=== PATIENT | male | born 1995 | race African-American/Black ===

== ENCOUNTER 2020-08-31 14:56 | Emergency (ER) | payer OTHER, SELFPAY ==
[2020-08-31 15:14] VITALS: BP 130/78; PULSE 68; RESP 16; TEMP 36.1; O2SAT 98; BMI 34.8
--- NOTE | 2020-08-31 15:18 | ED.HEATRA ---
HPI - Head Injury General Chief complaint: Head Injury <FLIP Christopher Last Filed: 08/31/20 16:53> Stated complaint: HIT BY POLE HEAD PAIN,NECK PAIN INJ <FLIP Christopher Last Filed: 08/31/20 16:53> Time Seen by Provider: 08/31/20 15:18 <FLIP Christopher Last Filed: 08/31/20 16:53> Source: patient <FLIP Christopher Last Filed: 08/31/20 16:53> Mode of arrival: ambulatory <FLIP Christopher Last Filed: 08/31/20 16:53> Limitations: no limitations <FLIP Christopher Last Filed: 08/31/20 16:53> History of Present Illness HPI Narrative: 25-year-old male here with neck pain and head pain and leg pain and chest pain. The patient tells me on August 29 he was doing a pole trick and the stripper pole collapsed on him causing the patient to fall. The pole hit him in the head and then he hit his head on a [place] counter. there was no loss of consciousness. The patient tells me the full broke into many pieces hitting him in the chest and legs. The patient has had a headache since the injury, neck pain, rib pain, leg pain. He was seen in urgent care and had a rib and chest x-ray which was negative. He also had a cervical x-ray which was negative and was sent to the emergency department for further evaluation. The patient has a generalized headache, posterior neck pain. No photophobia, nausea, vomiting, dizziness. Also complaining of bilateral rib pain bilateral thigh pain. No previous history of concussions <FLIP Christopher Last Filed: 08/31/20 16:53> MD Complaint: head injury and head pain <FLIP Christopher Last Filed: 08/31/20 16:53> Onset (ago): day(s) <FLIP Christopher Last Filed: 08/31/20 16:53> Mechanism of Injury: fall <FLIP Christopher Last Filed: 08/31/20 16:53> Place: other <Tosha Almaguer NP - Last Filed: 08/31/20 16:53> Loss of Consciousness: no <Tosha Almaguer NP - Last Filed: 08/31/20 16:53> Location of injury: frontal <Tosha Almaguer NP - Last Filed: 08/31/20 16:53> Severity: mild <Tosha Almaguer NP - Last Filed: 08/31/20 16:53> Quality: sharp <Tosha Almaguer NP - Last Filed: 08/31/20 16:53> Radiation: neck <Tosha Almaguer NP - Last Filed: 08/31/20 16:53> Other Injuries: chest and lower extremity <Tosha Almaguer NP - Last Filed: 08/31/20 16:53> Context: other (none ) <Tosha Almaguer NP - Last Filed: 08/31/20 16:53> Associated symptoms: denies other symptoms <Tosha Almaguer NP - Last Filed: 08/31/20 16:53> Related Data Home medications: Previous Rx's Medication Instructions Recorded cyclobenzaprine 10 mg PO TID PRN #10 tab 08/31/20 ibuprofen 600 mg PO Q8H PRN #15 tab 08/31/20 <Tosha Almaguer NP - Last Filed: 08/31/20 16:53> Allergies/Adverse reactions: Allergies Allergy/AdvReac Type Severity Reaction Status Date / Time shellfish derived Allergy Unknown ITCHING Verified 08/31/20 15:17 [SHELLFISH DERIVED] Penicillins [PCN] Allergy Anaphylaxis Verified 08/31/20 15:17 <Tosha Almaguer NP - Last Filed: 08/31/20 16:53> Review of Systems Review of Systems: Yes all other systems are reviewed and are negative <Tosha Almaguer NP - Last Filed: 08/31/20 16:53> Constitutional: Constitutional: Reports no additional constitutional complaints, Denies body ache(s), Denies chills, Denies fever(s), Reports headache(s) and Denies weakness <Tosha Almaguer NP - Last Filed: 08/31/20 16:53> Eyes: Eyes: Reports no additional eye complaints and Denies change in vision <Tosha Almaguer NP - Last Filed: 08/31/20 16:53> ENT: Reports system reviewed and no additional complaints, except as documented, Denies dizziness, Reports headache(s), Denies nasal congestion, Denies nasal discharge and Reports neck pain <Tosha Almaguer NP - Last Filed: 08/31/20 16:53> Cardiovascular: Cardiovascular: Reports no additional cardiovascular complaints, Reports chest pain, Denies leg edema and Denies dyspnea <Tosha Almaguer NP - Last Filed: 08/31/20 16:53> Respiratory: Respiratory: Reports no additional respiratory complaints, Denies cough and Denies dyspnea <Tosha Almaguer NP - Last Filed: 08/31/20 16:53> Gastrointestinal: Gastrointestinal: Reports no additional gastrointestinal complaints, Denies abdominal pain, Denies diarrhea, Denies nausea and Denies vomiting <Tosha Almaguer NP - Last Filed: 08/31/20 16:53> Genitourinary: Genitourinary: Denies urinary incontinence <Tosha Almaguer NP - Last Filed: 08/31/20 16:53> Musculoskeletal: Musculoskeletal: Reports no additional musculoskeletal complaints, Denies back pain, Denies arthralgias, Denies joint swelling, Reports neck pain, Denies numbness and Denies tingling <Tosha Almaguer NP - Last Filed: 08/31/20 16:53> Comments: muscle aches <Tosha Almaguer NP - Last Filed: 08/31/20 16:53> Integumentary/Breasts: Skin/Breast: Reports system reviewed and no additional complaints, except as docu and Denies rash <Tosha Almaguer NP - Last Filed: 08/31/20 16:53> Neurologic: Reports system reviewed and no additional complaints, except as documented, Denies Abnormal speech present, Denies dizziness, Reports headache(s), Denies numbness, Denies tingling and Denies weakness <Tosha Almaguer NP - Last Filed: 08/31/20 16:53> [facility] Past Medical History Attestation statement: The following information was validated with the patient. <Tosha Almaguer NP - Last Filed: 08/31/20 16:53> Source: old records reviewed, obtained from family and nursing notes reviewed <Tosha Almaguer NP - Last Filed: 08/31/20 16:53> Medical History: Medical History No known health problems <Tosha Almaguer NP - Last Filed: 08/31/20 16:53> Social History Social History: Social History Smoking Status: Never smoker Substance Use Type: Marijuana Advance Directives: No Advance Directives Information Provided: Yes <Tosha Almaguer NP - Last Filed: 08/31/20 16:53> Physical Exam Vital Signs: Vital Signs: Vital Signs Temp Pulse Resp BP Pulse Ox 08/31/20 15:14 96.9 F 68 16 130/78 98 Body Mass Index 34.8 <Tosha Almaguer NP - Last Filed: 08/31/20 16:53> Vital Signs: Vital Signs Temp Pulse Resp BP Pulse Ox 08/31/20 15:14 96.9 F 68 16 130/78 98 Body Mass Index 34.8 <Brien Fonseca MD - Last Filed: 09/11/20 01:39> Const: General: cooperative, healthy appearing, comfortable and no acute distress <Tosha Almaguer NP - Last Filed: 08/31/20 16:53> Orientation/consciousness: patient oriented x3 <Tosha Almaguer NP - Last Filed: 08/31/20 16:53> Limitations: no limitations <Tosha Almaguer NP - Last Filed: 08/31/20 16:53> HENMT: Head: Yes normal to inspection <Tosha Almaguer NP - Last Filed: 08/31/20 16:53> Ears: hearing grossly normal bilaterally <Tosha Almaguer NP - Last Filed: 08/31/20 16:53> General nose exam: Normal external nose present <FLIP Christopher Last Filed: 08/31/20 16:53> Face and sinus: Yes normal facial exam <Tosha Almaguer NP - Last Filed: 08/31/20 16:53> Mouth: Normal oral and palatal mucosa present <Tosha Almaguer NP - Last Filed: 08/31/20 16:53> Throat: Yes posterior oropharynx normal <Tosha Almaguer NP - Last Filed: 08/31/20 16:53> Eyes: General: appearance normal, both eyes and all related structures <Tosha Almaguer NP - Last Filed: 08/31/20 16:53> Pupils: Equal, round and reactive pupils present <Tosha Almaguer NP - Last Filed: 08/31/20 16:53> Neck: Other: midline lower cervical tenderness with no step-offs or deformities. <Tosha Almaguer NP - Last Filed: 08/31/20 16:53> Neck: Yes normal visual inspection, Yes full ROM, Yes no lymphadenopathy, Yes no meningeal signs, Yes trachea midline, Yes supple and No anterior neck swelling <Tosha Almaguer NP - Last Filed: 08/31/20 16:53> Chest: Other: Bilateral rib pain with mild tenderness. No crepitus, ecchymosis, deformity noted. <Tosha Almaguer NP - Last Filed: 08/31/20 16:53> Chest palpation & inspection: normal inspection of the chest <Tosha Almaguer NP - Last Filed: 08/31/20 16:53> Resp: Effort & Inspection: normal respiratory effort <Tosha Almaguer NP - Last Filed: 08/31/20 16:53> Auscultation: clear to auscultation bilaterally <Tosha Almaguer NP - Last Filed: 08/31/20 16:53> Cardio: Rate: regular rate <Tosha Almaguer NP - Last Filed: 08/31/20 16:53> Rhythm: regular rhythm <Tosha Almaguer NP - Last Filed: 08/31/20 16:53> Peripheral pulses: Peripheral pulses 2+ throughout <Tosha Almaguer NP - Last Filed: 08/31/20 16:53> GI: Inspection: Yes normal to inspection <Tosha Almaguer NP - Last Filed: 08/31/20 16:53> Palpation (GI): Soft to palpation and nontender <Tosha Almaguer NP - Last Filed: 08/31/20 16:53> Auscultation: normal bowel sounds <Tosha Almaguer EQUIPMENT OILER - Last Filed: 08/31/20 16:53> Back/Spine/Pelvis: Thoracic/Lumbar Spine: thoracic and lumbar spine normal to inspection <Tosha Almaguer NP - Last Filed: 08/31/20 16:53> Skin: General skin exam: no rashes or lesions noted <Tosha Almaguer NP - Last Filed: 08/31/20 16:53> Neuro: General: patient oriented x3, Normal light touch and pain sensation, no meningeal signs, no focal motor deficits and normal sensation to monofilament <Tosha Almaguer NP - Last Filed: 08/31/20 16:53> Cranial nerves: Yes CN's II-XII intact bilaterally, Yes Equal, round and reactive pupils present, Yes Bilaterally intact EOM present, Yes Nystagmus not present, Yes Normal facial strength present and Yes Midline tongue present <Tosha Almaguer NP - Last Filed: 08/31/20 16:53> Cognition (Neuro): normal cognition <Tosha Almaguer NP - Last Filed: 08/31/20 16:53> Speech: No Abnormal speech present <Tosha Almaguer NP - Last Filed: 08/31/20 16:53> Gait exam (Neuro): Normal gait present <Tosha Almaguer NP - Last Filed: 08/31/20 16:53> Motor exam (neuro): 5/5 motor strength present throughout <Tosha Almaguer NP - Last Filed: 08/31/20 16:53> Sensory Exam: Normal double simultaneous stimulation for sensation <Tosha Almaguer NP - Last Filed: 08/31/20 16:53> Coordination: [id number] test normal, [id number] test normal, tandem gait normal and Romberg test negative <Tosha Almaguer NP - Last Filed: 08/31/20 16:53> Extrem: Other: Bilateral anterior thigh pain. No bony abnormality. Full range of motion of bilateral hips, knees, ankles. No obvious ecchymosis or swelling. <Tosha Almaguer NP - Last Filed: 08/31/20 16:53> General: Yes normal to inspection <Tosha Almaguer NP - Last Filed: 08/31/20 16:53> Course Course Course Narrative: Will check imaging, head and neck. Reviewed imaging sent from urgent care. Reviewed x-rays from urgent care( Ribs and chest x-ray unremarkable. Cervical x-ray unremarkable). Neuro is are intact. No deficits. Normal and stable vital signs. 1645- CT head and neck negative here. Likely concussion and cervical strain. Patient is tolerating p.o.. Pain is well controlled. Neurologically intact. I reviewed follow-up with primary care outpatient. Reviewed worrisome signs and symptoms and when to return to the emergency department. Comfortable with discharge home. <Tosha Almaguer NP - Last Filed: 08/31/20 16:53> I have reviewed the chart <Brien Fonseca MD - Last Filed: 09/11/20 01:39> MDM - Head Injury MDM Narrative Medical decision making narrative: Cervical strain versus fracture, ICH versus contusion versus concussion. <Tosha Almaguer NP - Last Filed: 08/31/20 16:53> Medical Records Attestation: I reviewed the patient's medical records. <Tosha Almaguer NP - Last Filed: 08/31/20 16:53> Lab Data Attestation: I reviewed the patient's lab results. <Tosha Almaguer NP - Last Filed: 08/31/20 16:53> Imaging Data CT head/neck: Attestation: I personally reviewed and interpreted this imaging study as follows: <Tosha Almaguer NP - Last Filed: 08/31/20 16:53> Radiologist's impression: EXAMINATION: CT HEAD WITHOUT CONTRAST CT CERVICAL SPINE WITHOUT CONTRAST CLINICAL INFORMATION: Fall. Pain. COMPARISON: None. TECHNIQUE: Imaging was performed from the skull base to vertex without intravenous administration of contrast. In addition, helical noncontrast CT imaging was acquired through the cervical spine and source images were reviewed along with axial reconstructions and sagittal and coronal MPRs. [This CT examination was performed using dose optimization techniques as appropriate, variously including the following: *Automated exposure control *Adjustment of mA and/or kV according to patient size (this includes techniques or standardized protocols for targeted exams where dose is matched to indication/reason for exam; i.e. extremities or head) *Use of iterative reconstruction technique] DLP: 1352 mGy-cm FINDINGS: HEAD: No intracranial mass, hemorrhage, or midline shift is visualized. The ventricles and sulci are age-appropriate. No extra-axial collections are identified. Small volume of lobular mucosal thickening in the ethmoid sinuses bilaterally and the anterior sphenoid sinuses bilaterally. The mastoid air cells and middle ear cavities are normally aerated. CERVICAL SPINE: There is no evidence of acute cervical spine fracture. Vertebral bodies remain normal in height. Cervical vertebrae have normal alignment. Cervical disc heights are normal. The facet joints are normal. No pre- or paravertebral soft tissue abnormality is identified. Limited assessment of the lung apices is unremarkable. CT/CT cervical spine wo con IMPRESSION: 1. No acute intracranial pathology. 2. No CT evidence of acute cervical spine fracture or traumatic subluxation <Tosha Almaguer NP - Last Filed: 08/31/20 16:53> Discharge Plan Discharge Clinical Impression: Concussion without loss of consciousness, Cervical strain, Contusion, Chest wall contusion <Tosha Almaguer NP - Last Filed: 08/31/20 16:53> Patient Disposition: Home, Self-Care <Tosha Almaguer NP - Last Filed: 08/31/20 16:53> Instructions: Cervical Strain (ED), Concussion (ED), Contusion in Adults (ED) <Tosha Almaguer NP - Last Filed: 08/31/20 16:53> Additional Instructions: Limit screen time. Rest your eyes and get plenty of rest Apply ice to the affected areas and do some gentle stretching For continued symptoms follow-up with your PCP in [place] as discussed Return to a emergency department for 2 or more vomiting episodes, vision changes, weakness <Tosha Almaguer NP - Last Filed: 08/31/20 16:53> Prescriptions: New ibuprofen 600 mg tablet 600 mg PO Q8H PRN (Reason: fever or pain) Qty: 15 RF: 0 cyclobenzaprine 10 mg tablet 10 mg PO TID PRN (Reason: muscle spasm) Qty: 10 RF: 0 <Tosha Almaguer NP - Last Filed: 08/31/20 16:53> Referrals: Physician,None [Primary Care Provider] - 2 days <Tosha Almaguer NP - Last Filed: 08/31/20 16:53> Stand Alone Forms: Work/School Release <Tosha Almaguer NP - Last Filed: 08/31/20 16:53> Interventions: ED Discharge Assessment Last Done: 08/31/20 16:49 <Tosha Almaguer NP - Last Filed: 08/31/20 16:53> Discharge Date/Time: 08/31/20 16:49 <Tosha Almaguer NP - Last Filed: 08/31/20 16:53>
--- NOTE | 2020-08-31 15:35 | CT_ITS ---
EXAMINATION: CT HEAD WITHOUT CONTRAST CT CERVICAL SPINE WITHOUT CONTRAST CLINICAL INFORMATION: Fall. Pain. COMPARISON: None. TECHNIQUE: Imaging was performed from the skull base to vertex without intravenous administration of contrast. In addition, helical noncontrast CT imaging was acquired through the cervical spine and source images were reviewed along with axial reconstructions and sagittal and coronal MPRs. [This CT examination was performed using dose optimization techniques as appropriate, variously including the following: *Automated exposure control *Adjustment of mA and/or kV according to patient size (this includes techniques or standardized protocols for targeted exams where dose is matched to indication/reason for exam; i.e. extremities or head) *Use of iterative reconstruction technique] DLP: 1352 mGy-cm FINDINGS: HEAD: No intracranial mass, hemorrhage, or midline shift is visualized. The ventricles and sulci are age-appropriate. No extra-axial collections are identified. Small volume of lobular mucosal thickening in the ethmoid sinuses bilaterally and the anterior sphenoid sinuses bilaterally. The mastoid air cells and middle ear cavities are normally aerated. CERVICAL SPINE: There is no evidence of acute cervical spine fracture. Vertebral bodies remain normal in height. Cervical vertebrae have normal alignment. Cervical disc heights are normal. The facet joints are normal. No pre- or paravertebral soft tissue abnormality is identified. Limited assessment of the lung apices is unremarkable. CT/CT cervical spine wo con IMPRESSION: 1. No acute intracranial pathology. 2. No CT evidence of acute cervical spine fracture or traumatic subluxation
[2020-08-31] MEDS: Ibuprofen 800 MG TABLET PO (16:04)
== END 2020-08-31 16:49 | disposition home or self-care (01) ==
PROVIDERS: Emergency Provider Emergency Medicine
DX: S06.0X0A Concussion without loss of consciousness, initial encounter (principal); S16.1XXA Strain of muscle, fascia and tendon at neck level, initial encounter; S70.12XA Contusion of left thigh, initial encounter; S70.11XA Contusion of right thigh, initial encounter; S20.213A Contusion of bilateral front wall of thorax, initial encounter; G44.309 Post-traumatic headache, unspecified, not intractable; M79.605 Pain in left leg; M54.5 Low back pain; M54.2 Cervicalgia; M79.604 Pain in right leg; W01.10XA Fall on same level from slipping, tripping and stumbling with subsequent striking against unspecified object, initial encounter; Y93.41 Activity, dancing; Y92.009 Unspecified place in unspecified non-institutional (private) residence as the place of occurrence of the external cause; Y99.8 Other external cause status
CPT/HCPCS: 70450; 72125; 96372; 99284; J1885